=== PATIENT | male | born 1935 | race Caucasian/White ===

== ENCOUNTER 2021-04-06 10:30 | Observation (INO) | payer MEDICARE, OTHER ==
[2021-04-06 12:52] LABS: SARS-CoV-2 NAA Rapid Test DETECTED (NotDetected)
[2021-04-06 13:00] LABS: #Eosinphils 0.2 10x3/uL (0.0-0.5); #Monocytes 0.6 10x3/uL (0.0-1.1); #Neutrophils 4.9 10x3/uL (1.5-8.4); %Basophils 0.3 % (0.0-2.0); %Eosinophils 2.1 % (0.0-6.0); %Lymphocytes 20.3 % (18.0-47.0); %Monocytes 8.9 % (0.0-10.0); %Neutrophils 67.7 % (40.0-75.0); Hemoglobin 10.3 g/dL (13.5-17.5); Mean Corpuscular HGB CONC 32.5 g/dL (32.0-36.0); Mean Corpuscular Hemoglobin 29.5 pg (27.0-33.0); Mean Corpuscular Volume 90.8 fl (81.2-95.1); Mean Platelet Volume 10.2 fl (7.4-10.4); Platelet Count 283 10x3/uL (150-450); RBC Distribution Width 12.6 % (11.5-14.5); Red Blood Cell (RBC) Count 3.49 10x6/uL (4.32-5.72); White Blood Cell (WBC) Count 7.2 10x3/uL (3.5-10.5)
[2021-04-06 13:03] LABS: CKMB 4.5 ng/mL (0-6.6)
[2021-04-06 13:42] LABS: Bilirubin Neg (Negative); Blood, Urine 50 (Negative); Clarity Clear (Clear); Glucose, Urine (Dipstick) 100 mg/dL (Negative); Ketone, Urine Negative (Negative); Leukocyte Negative (Negative); Nitrite Negative (Negative); Protein, Urine (Dipstick) 500 mg/dl (Neg-Trace); Urobilinogen Normal mg/dL (Less than 2)
[2021-04-06 13:52] LABS: ALT (SGPT) 14 U/L (8-55); AST (SGOT) 17 U/L (5-34); Alkaline Phosphatase 73 U/L (40-110); Anion Gap 13 mmol/L (10-20); BUN (Urea Nitrogen) 35 mg/dL (8.4-25.7); Bilirubin, Total 1.1 mg/dL (0.2-1.2); CK (CPK) 114 U/L (30-200); CRP (Inflammatory) 2.97 mg/dL (= or < 0.5); Calc. Creatinine Clearance 0 mL/min (70-130); Carbon Dioxide 21 mmol/L (23-31); Chloride 104 mmol/L (98-107); Globulin 2.9 g/dL (2.4-3.5); Glucose 289 mg/dL (83-110); Lipase 45 U/L (8-78); Magnesium 1.9 mg/dL (1.6-2.6); Potassium 3.6 mmol/L (3.5-5.1); Protein, Total 5.9 g/dL (5.8-8.1); Sodium 134 mmol/L (136-145)
[2021-04-06 13:53] LABS: Acetaminophen Less than 6.0 mcg/mL (10.0-30.0); Alcohol Less than 10 mg/dL (Less than 10); Salicylate Less than 8.0 mg/dL (15.0-30.0)
[2021-04-06 14:08] LABS: Renal Epithelial 0-3 HPF (None Seen); Squamous Epithelial 0-3 HPF (0-3); WBC/HPF 0-3 HPF (0-3)
[2021-04-06 14:09] LABS: Bacteria/HPF Rare-Few HPF (None Seen)
[2021-04-06] MEDS ORDERED: Aspirin Chewable 81 MG TAB ONE (14:10)
[2021-04-06] MEDS ORDERED: Ondansetron ODT 4 MG TAB PO PRN (14:18)
[2021-04-06] MEDS ORDERED: Acetaminophen 325 MG TAB PO PRN (14:18)
[2021-04-06 14:46] LABS: Magnesium 1.9 mg/dL (1.6-2.6)
[2021-04-06] MEDS ORDERED: Dextrose 50% Abboject 50 ML SYRINGE SLOW IVP PRN (14:46)
[2021-04-06] MEDS ORDERED: Dextrose 5% in Water 1,000 ML IV PRN (14:46)
[2021-04-06] MEDS ORDERED: Benzonatate 100 MG CAP PO PRN (15:08)
[2021-04-06 16:11] LABS: Acetaminophen Less than 6.0 mcg/mL (10.0-30.0); Alcohol Less than 10 mg/dL (Less than 10); Salicylate Less than 8.0 mg/dL (15.0-30.0)
[2021-04-06 16:17] LABS: Troponin I 0.044 ng/mL (< 0.028)
[2021-04-06 16:54] VITALS: BMI 20.7
[2021-04-06] MEDS: HumaLOG 300 UNITS/3 ML VIAL SC PRN (18:01)
[2021-04-06] MEDS: Ventolin HFA Inhaler 60 PUFF INHALER INH SCH (19:30)
[2021-04-06] MEDS: AMOXicillin 250 MG CAP PO SCH (20:54)
[2021-04-06 22:21] LABS: Troponin I 0.046 ng/mL (< 0.028)
[2021-04-07] MEDS: Ventolin HFA Inhaler 60 PUFF INHALER INH SCH ×3 (01:10→14:47)
[2021-04-07] MEDS ORDERED: Lorazepam 2 MG/ML VIAL SLOW IVP SCH (02:30)
[2021-04-07 07:24] LABS: #Eosinphils 0.1 10x3/uL (0.0-0.5); #Monocytes 0.6 10x3/uL (0.0-1.1); #Neutrophils 3.3 10x3/uL (1.5-8.4); %Basophils 0.6 % (0.0-2.0); %Eosinophils 2.6 % (0.0-6.0); %Lymphocytes 23.1 % (18.0-47.0); %Monocytes 11.7 % (0.0-10.0); %Neutrophils 61.3 % (40.0-75.0); Hemoglobin 9.1 g/dL (13.5-17.5); Mean Corpuscular HGB CONC 32.5 g/dL (32.0-36.0); Mean Corpuscular Hemoglobin 29.4 pg (27.0-33.0); Mean Corpuscular Volume 90.3 fl (81.2-95.1); Mean Platelet Volume 10.3 fl (7.4-10.4); Platelet Count 273 10x3/uL (150-450); RBC Distribution Width 12.6 % (11.5-14.5); White Blood Cell (WBC) Count 5.4 10x3/uL (3.5-10.5)
[2021-04-07 07:37] LABS: Anion Gap 14 mmol/L (10-20); BUN (Urea Nitrogen) 34 mg/dL (8.4-25.7); Calc. Creatinine Clearance 29 mL/min (70-130); Calcium 7.8 mg/dL (7.8-10.44); Carbon Dioxide 19 mmol/L (23-31); Chloride 108 mmol/L (98-107); Glucose 162 mg/dL (83-110); Potassium 3.4 mmol/L (3.5-5.1); Sodium 138 mmol/L (136-145)
[2021-04-07] MEDS: Cholecalciferol 1,000 UNITS (25 MCG) TAB PO SCH ×2 (08:15→09:53)
[2021-04-07] MEDS: Zinc Sulfate 220 MG CAP PO SCH ×2 (08:15→09:53)
[2021-04-07] MEDS: AMOXicillin 250 MG CAP PO SCH ×2 (08:15→09:52)
[2021-04-07] MEDS: Ascorbic Acid 500 mg Chewable Tablet PO SCH ×2 (08:16→09:53)
[2021-04-07] MEDS: Aspirin 81 mg Enteric Coated Tablet PO SCH ×2 (08:16→09:53)
[2021-04-07] MEDS ORDERED: Electrolyte Replacement Protocol 1 EACH FS SCH (17:15)
[2021-04-07] MEDS: HumaLOG 300 UNITS/3 ML VIAL SC PRN ×2 (18:00→22:17)
[2021-04-07] MEDS ORDERED: Potassium Bicarbonate/Cit Ac 20 MEQ TAB PO SCH (18:00)
[2021-04-07] MEDS ORDERED: Magnesium 2 GM/50 ML 2 GM in Premix Bag 1 BAG IVPB SCH (18:00)
[2021-04-07] MEDS ORDERED: Atorvastatin Calcium 40 MG TAB PO SCH (21:00)
[2021-04-07] MEDS ORDERED: Donepezil HCl 5 MG TAB PO SCH (21:00)
[2021-04-07] MEDS ORDERED: Tamsulosin HCl 0.4 MG CAP PO SCH (21:00)
[2021-04-07] MEDS: Sacubitril 49 MG/Valsartan 51 MG TABLET PO SCH (21:29)
[2021-04-07] MEDS: Carvedilol 12.5 MG TAB PO SCH (22:16)
[2021-04-07 22:48] LABS: Potassium 3.8 mmol/L (3.5-5.1)
[2021-04-08] MEDS: HumaLOG 300 UNITS/3 ML VIAL SC PRN ×3 (05:54→12:53)
[2021-04-08] MEDS ORDERED: Levothyroxine Sodium 50 MCG TAB PO SCH (06:00)
[2021-04-08 07:02] LABS: Magnesium 2.3 mg/dL (1.6-2.6)
[2021-04-08 08:08] LABS: Phosphorus 1.7 mg/dL (2.3-4.7)
[2021-04-08] MEDS ORDERED: Ezetimibe 10 MG TAB PO SCH (09:00)
[2021-04-08] MEDS ORDERED: Venlafaxine HCl XR 75 MG CAP PO SCH (09:00)
[2021-04-08] MEDS ORDERED: Cyanocobalamin (Vitamin B-12) 1,000 MCG TAB PO SCH (09:00)
[2021-04-08] MEDS: Sacubitril 49 MG/Valsartan 51 MG TABLET PO SCH (09:44)
[2021-04-08] MEDS: Cholecalciferol 1,000 UNITS (25 MCG) TAB PO SCH (09:44)
[2021-04-08] MEDS: Zinc Sulfate 220 MG CAP PO SCH (09:44)
[2021-04-08] MEDS: Aspirin 81 mg Enteric Coated Tablet PO SCH (09:44)
[2021-04-08] MEDS: Carvedilol 12.5 MG TAB PO SCH ×2 (09:44→17:32)
[2021-04-08] MEDS: Ascorbic Acid 500 mg Chewable Tablet PO SCH (09:45)
[2021-04-08] MEDS: PHOS-NAK 1 PKT PACK PO SCH ×2 (09:46→12:52)
[2021-04-08 10:48] LABS: #Eosinphils 0.1 10x3/uL (0.0-0.5); #Monocytes 0.6 10x3/uL (0.0-1.1); #Neutrophils 3.6 10x3/uL (1.5-8.4); %Basophils 0.5 % (0.0-2.0); %Eosinophils 2.2 % (0.0-6.0); %Lymphocytes 22.3 % (18.0-47.0); %Monocytes 10.1 % (0.0-10.0); %Neutrophils 64.5 % (40.0-75.0); Hemoglobin 9.8 g/dL (13.5-17.5); Mean Corpuscular HGB CONC 32.6 g/dL (32.0-36.0); Mean Corpuscular Hemoglobin 29.2 pg (27.0-33.0); Mean Corpuscular Volume 89.6 fl (81.2-95.1); Mean Platelet Volume 10.1 fl (7.4-10.4); Platelet Count 313 10x3/uL (150-450); Red Blood Cell (RBC) Count 3.36 10x6/uL (4.32-5.72); White Blood Cell (WBC) Count 5.6 10x3/uL (3.5-10.5)
[2021-04-08 11:11] LABS: ALT (SGPT) 12 U/L (8-55); AST (SGOT) 15 U/L (5-34); Albumin 2.7 g/dL (3.4-4.8); Alkaline Phosphatase 73 U/L (40-110); Anion Gap 13 mmol/L (10-20); BUN (Urea Nitrogen) 34 mg/dL (8.4-25.7); Bilirubin, Total 1.3 mg/dL (0.2-1.2); Calc. Creatinine Clearance 28 mL/min (70-130); Carbon Dioxide 23 mmol/L (23-31); Chloride 107 mmol/L (98-107); Globulin 2.7 g/dL (2.4-3.5); Glucose 229 mg/dL (83-110); Potassium 3.6 mmol/L (3.5-5.1); Protein, Total 5.4 g/dL (5.8-8.1); Sodium 139 mmol/L (136-145)
[2021-04-08] MEDS: Ventolin HFA Inhaler 60 PUFF INHALER INH SCH (12:45)
[2021-04-08 17:55] VITALS: BP 148/80; TEMP 98
[2021-04-09] MEDS ORDERED: FLU VACC QS2021-22(65YR UP)/PF 240 MCG/0.7 ML SYRINGE IM ONE (17:15)
== END 2021-04-08 18:47 ==
LOC: CSHERS 10:30 → CSHTELE 14:37
PROVIDERS: ADMIT Hospitalist; ATTEND Family Medicine
DX: G93.41 Metabolic encephalopathy (principal); S09.90XA Unspecified injury of head, initial encounter; U07.1 COVID-19; J12.82 Pneumonia due to coronavirus disease 2019; Z91.81 History of falling; N39.0 Urinary tract infection, site not specified; R77.8 Other specified abnormalities of plasma proteins; I25.10 Atherosclerotic heart disease of native coronary artery without angina pectoris; I11.0 Hypertensive heart disease with heart failure; I50.9 Heart failure, unspecified; Z95.810 Presence of automatic (implantable) cardiac defibrillator; E03.9 Hypothyroidism, unspecified; Z79.01 Long term (current) use of anticoagulants; Z79.899 Other long term (current) drug therapy; E11.9 Type 2 diabetes mellitus without complications; G30.9 Alzheimer's disease, unspecified; F02.80 Dementia in other diseases classified elsewhere, unspecified severity, without behavioral disturbance, psychotic disturbance, mood disturbance, and anxiety; F32.9 Major depressive disorder, single episode, unspecified; Z79.4 Long term (current) use of insulin; W19.XXXA Unspecified fall, initial encounter; Z95.5 Presence of coronary angioplasty implant and graft; Z95.1 Presence of aortocoronary bypass graft; Z90.49 Acquired absence of other specified parts of digestive tract
CPT/HCPCS: 70450; 71045; 72125; 80048; 80053; 80307; 82550; 82553; 82962 ×3; 83605; 83690; 83735 ×2; 83880; 84100; 84132; 84484 ×2; 85025 ×2; 86140; 87086; 93005; 94640 ×3; 94664; 94760 ×2; 97139 ×4; M0243; Q0244; U0002; 36415; 36416; 51701; 81003; 81015; 84443; 96374; 96375; G0378; J1815; J2060; J3475; J3490

== ENCOUNTER 2021-04-09 08:39 | Emergency (ER) | payer MEDICARE, OTHER | END 2021-04-09 12:45 | disposition home or self-care (01) | LOC: CSHERS 08:39 | DX: S05.11XA Contusion of eyeball and orbital tissues, right eye, initial encounter (principal); I11.0 Hypertensive heart disease with heart failure; I50.9 Heart failure, unspecified; E03.9 Hypothyroidism, unspecified; E78.00 Pure hypercholesterolemia, unspecified; G30.9 Alzheimer's disease, unspecified; F02.80 Dementia in other diseases classified elsewhere, unspecified severity, without behavioral disturbance, psychotic disturbance, mood disturbance, and anxiety; Z79.01 Long term (current) use of anticoagulants; Z79.899 Other long term (current) drug therapy; Z79.4 Long term (current) use of insulin; W06.XXXA Fall from bed, initial encounter | CPT/HCPCS: 12011; 70450; 70486; 93005 ==

== ENCOUNTER 2021-04-19 11:08 | Emergency (ER) | payer OTHER, MEDICARE | END 2021-04-19 14:10 | disposition home or self-care (01) | LOC: CSHERS 11:08 | DX: S00.03XA Contusion of scalp, initial encounter (principal); W01.10XA Fall on same level from slipping, tripping and stumbling with subsequent striking against unspecified object, initial encounter; I11.0 Hypertensive heart disease with heart failure; I50.9 Heart failure, unspecified; E78.5 Hyperlipidemia, unspecified; Z79.899 Other long term (current) drug therapy | CPT/HCPCS: 70450 ==

== ENCOUNTER 2021-05-16 02:40 | Inpatient (IN) | payer OTHER, MEDICARE ==
[2021-05-16] MEDS ORDERED: Dextrose 50% Abboject 50 ML SYRINGE ONE ×2 (03:17→15:47)
[2021-05-16 03:31] LABS: ALV-art Gradient 339.395 mmHg (0-20); Actual Bicarbonate (HCO3a) 16.3 mEq/L (22-28); Base Excess (BEa) -11.2 mEq/L (-2.0 to +3.0); CO2 Tension 42.9 mmHg (35.0-45.0); Calcium, Ionized (arterial) 1.24 mmol/L (1.12-1.30); Carboxyhemoglobin (COHb) 0.3 gm% (0.0-3.0); O2 Tension (PaO2), arterial 63.3 mmHg (> 60.0); Potassium - ABG Lab 3.6 mmol/L (3.70-5.30); Puncture Site RBA
[2021-05-16] MEDS ORDERED: Sodium Bicarb 50 MEQ/50 ML Abboject 8.4% SYRINGE ONE (03:37)
[2021-05-16 03:57] LABS: #Monocytes 0.3 10x3/uL (0.0-1.1); #Neutrophils 6.1 10x3/uL (1.5-8.4); %Basophils 0.3 % (0.0-2.0); %Eosinophils 0.1 % (0.0-6.0); %Lymphocytes 12.9 % (18.0-47.0); %Monocytes 3.4 % (0.0-10.0); Hemoglobin 11.2 g/dL (13.5-17.5); Mean Corpuscular HGB CONC 31.5 g/dL (32.0-36.0); Mean Corpuscular Hemoglobin 29.2 pg (27.0-33.0); Mean Corpuscular Volume 92.7 fl (81.2-95.1); Mean Platelet Volume 11.2 fl (7.4-10.4); Platelet Count 149 10x3/uL (150-450); RBC Distribution Width 14.9 % (11.5-14.5); Red Blood Cell (RBC) Count 3.84 10x6/uL (4.32-5.72); White Blood Cell (WBC) Count 7.3 10x3/uL (3.5-10.5)
[2021-05-16 04:09] LABS: Bilirubin Neg (Negative); Blood, Urine 150 (Negative); Clarity Cloudy (Clear); Glucose, Urine (Dipstick) 50 mg/dL (Negative); Ketone, Urine Negative (Negative); Leukocyte 500 (Negative); Nitrite Negative (Negative); Protein, Urine (Dipstick) 500 mg/dl (Neg-Trace); Urobilinogen Normal mg/dL (Less than 2)
[2021-05-16] MEDS ORDERED: Cefepime 2 GM VIAL ONE (04:09)
[2021-05-16 04:12] LABS: SARS-CoV-2 NAA Rapid Test DETECTED (NotDetected)
[2021-05-16 04:13] LABS: ALT (SGPT) 17 U/L (8-55); AST (SGOT) 32 U/L (5-34); Albumin 2.7 g/dL (3.4-4.8); Alkaline Phosphatase 102 U/L (40-110); Anion Gap 15 mmol/L (10-20); BUN (Urea Nitrogen) 51 mg/dL (8.4-25.7); Bilirubin, Total 1.2 mg/dL (0.2-1.2); Calc. Creatinine Clearance 0 mL/min (70-130); Calcium 7.9 mg/dL (7.8-10.44); Carbon Dioxide 23 mmol/L (23-31); Chloride 108 mmol/L (98-107); Globulin 2.9 g/dL (2.4-3.5); Glucose 301 mg/dL (83-110); Potassium 3.1 mmol/L (3.5-5.1); Protein, Total 5.6 g/dL (5.8-8.1); Sodium 143 mmol/L (136-145)
[2021-05-16 04:50] LABS: CKMB 9.3 ng/mL (0-6.6)
[2021-05-16 04:53] LABS: Bacteria/HPF None Seen HPF (None Seen); Squamous Epithelial None Seen HPF (0-3); WBC/HPF Greater than 50 HPF (0-3)
[2021-05-16] MEDS ORDERED: Potassium Chloride 20 MEQ/100 ML PREMIX BAG ONE (05:26)
[2021-05-16 07:14] LABS: Lactic Acid 3.4 mmol/L (0.5-2.2)
[2021-05-16 07:24] VITALS: BMI 18.1
[2021-05-16 07:34] LABS: Troponin I 0.144 ng/mL (< 0.028)
[2021-05-16 07:39] LABS: Magnesium 1.8 mg/dL (1.6-2.6)
[2021-05-16] MEDS: Dextrose 10% in Water 1,000 ML IV SCH (08:46)
[2021-05-16] MEDS: Lactated Ringer's 1,000 ML IV SCH ×2 (08:54→17:09)
[2021-05-16] MEDS: Enoxaparin Sodium 60 MG/0.6 ML SYRINGE SC SCH (08:55)
[2021-05-16] MEDS ORDERED: FLU VACC QS2021-22(65YR UP)/PF 240 MCG/0.7 ML SYRINGE IM ONE (09:00)
[2021-05-16] MEDS: Potassium Chloride 20 MEQ in Premix Bag 1 BAG IVPB SCH ×3 (09:16→20:25)
[2021-05-16] MEDS ORDERED: Vancomycin 1 GM in Premix Bag 1 BAG IVPB PRN (09:31)
[2021-05-16 09:44] LABS: Troponin I 0.153 ng/mL (< 0.028)
[2021-05-16] MEDS ORDERED: Famotidine 20 MG TAB PO SCH (10:00)
[2021-05-16 11:03] LABS: Lactic Acid 3.2 mmol/L (0.5-2.2)
[2021-05-16 12:47] LABS: ALT (SGPT) 16 U/L (8-55); AST (SGOT) 29 U/L (5-34); Albumin 2.6 g/dL (3.4-4.8); Alkaline Phosphatase 93 U/L (40-110); Anion Gap 13 mmol/L (10-20); BUN (Urea Nitrogen) 50 mg/dL (8.4-25.7); Bilirubin, Total 1.2 mg/dL (0.2-1.2); Calc. Creatinine Clearance 18 mL/min (70-130); Calcium 7.8 mg/dL (7.8-10.44); Carbon Dioxide 28 mmol/L (23-31); Chloride 112 mmol/L (98-107); Globulin 2.7 g/dL (2.4-3.5); Glucose 125 mg/dL (83-110); Protein, Total 5.3 g/dL (5.8-8.1); Sodium 150 mmol/L (136-145)
[2021-05-16] MEDS: Dextrose 5 %-0.45 % NaCl 1,000 ML IV SCH (17:06)
[2021-05-16 18:01] LABS: Anion Gap 11 mmol/L (10-20); BUN (Urea Nitrogen) 46 mg/dL (8.4-25.7); Calc. Creatinine Clearance 19 mL/min (70-130); Calcium 7.9 mg/dL (7.8-10.44); Carbon Dioxide 30 mmol/L (23-31); Chloride 109 mmol/L (98-107); Glucose 138 mg/dL (83-110); Sodium 147 mmol/L (136-145)
[2021-05-16] MEDS: Famotidine/PF 20 mg/2ml Vial SLOW IVP SCH (22:21)
[2021-05-17] MEDS: Cefepime 2 GM in Sodium Chloride 0.9% 100 ML IVPB SCH (04:27)
[2021-05-17] MEDS ORDERED: VANCOMYCIN IVPB SCH (05:00)
[2021-05-17] MEDS: Dextrose 5 %-0.45 % NaCl 1,000 ML IV SCH ×2 (05:33→14:51)
[2021-05-17] MEDS: Dextrose 10% in Water 1,000 ML IV SCH (05:33)
[2021-05-17] MEDS ORDERED: Levothyroxine Sodium 200 MCG VIAL IVP SCH (06:00)
[2021-05-17 06:28] LABS: Vancomycin, Random 8.5 ug/mL (See Comment)
[2021-05-17 06:32] LABS: Anion Gap 11 mmol/L (10-20); BUN (Urea Nitrogen) 39 mg/dL (8.4-25.7); Calc. Creatinine Clearance 21 mL/min (70-130); Calcium 7.8 mg/dL (7.8-10.44); Carbon Dioxide 28 mmol/L (23-31); Chloride 110 mmol/L (98-107); Glucose 100 mg/dL (83-110); Magnesium 1.7 mg/dL (1.6-2.6); Sodium 146 mmol/L (136-145)
[2021-05-17 07:03] LABS: #Monocytes 0.7 10x3/uL (0.0-1.1); #Neutrophils 6.8 10x3/uL (1.5-8.4); %Basophils 0.2 % (0.0-2.0); %Eosinophils 0.4 % (0.0-6.0); %Lymphocytes 17.3 % (18.0-47.0); %Neutrophils 73.9 % (40.0-75.0); Hemoglobin 10.2 g/dL (13.5-17.5); Mean Corpuscular HGB CONC 31.9 g/dL (32.0-36.0); Mean Corpuscular Hemoglobin 29.7 pg (27.0-33.0); Mean Platelet Volume 11.2 fl (7.4-10.4); Platelet Count 142 10x3/uL (150-450); RBC Distribution Width 15.2 % (11.5-14.5); Red Blood Cell (RBC) Count 3.44 10x6/uL (4.32-5.72); White Blood Cell (WBC) Count 9.2 10x3/uL (3.5-10.5)
[2021-05-17] MEDS ORDERED: Famotidine 20 MG TAB PO SCH (09:00)
[2021-05-17] MEDS ORDERED: Vancomycin HCl 750 MG in Sodium Chloride 0.9% 250 ML 250 ML IVPB SCH (09:00)
[2021-05-17] MEDS: Enoxaparin Sodium 60 MG/0.6 ML SYRINGE SC SCH (09:51)
[2021-05-17] MEDS: Famotidine/PF 20 mg/2ml Vial SLOW IVP SCH ×2 (09:51→21:23)
[2021-05-17] MEDS ORDERED: Electrolyte Replacement Protocol 1 EACH FS SCH (20:30)
[2021-05-17] MEDS ORDERED: Carvedilol 12.5 MG TAB PO SCH (21:00)
[2021-05-17] MEDS ORDERED: Potassium Chloride 20 MEQ in Premix Bag 1 BAG IVPB SCH (21:00)
[2021-05-17] MEDS ORDERED: Potassium Bicarbonate/Cit Ac 20 MEQ TAB PO SCH (21:00)
[2021-05-17] MEDS: Donepezil HCl 5 MG TAB PO SCH (21:19)
[2021-05-18] MEDS: Cefepime 2 GM in Sodium Chloride 0.9% 100 ML IVPB SCH (05:14)
[2021-05-18 06:01] LABS: ALT (SGPT) 16 U/L (8-55); AST (SGOT) 32 U/L (5-34); Albumin 2.7 g/dL (3.4-4.8); Alkaline Phosphatase 102 U/L (40-110); Anion Gap 13 mmol/L (10-20); BUN (Urea Nitrogen) 28 mg/dL (8.4-25.7); Bilirubin, Total 1.3 mg/dL (0.2-1.2); Calc. Creatinine Clearance 24 mL/min (70-130); Calcium 7.9 mg/dL (7.8-10.44); Carbon Dioxide 25 mmol/L (23-31); Chloride 108 mmol/L (98-107); Globulin 2.6 g/dL (2.4-3.5); Glucose 141 mg/dL (83-110); Magnesium 1.6 mg/dL (1.6-2.6); Potassium 3.4 mmol/L (3.5-5.1); Protein, Total 5.3 g/dL (5.8-8.1); Sodium 143 mmol/L (136-145)
[2021-05-18] MEDS ORDERED: Magnesium 2 GM/50 ML 2 GM in Premix Bag 1 BAG IVPB SCH (06:15)
[2021-05-18] MEDS: Potassium Chloride 20 MEQ TAB PO SCH ×2 (06:40→12:02)
[2021-05-18] MEDS ORDERED: Tamsulosin HCl 0.4 MG CAP PO SCH ×2 (09:00→15:30)
[2021-05-18] MEDS: Ferrous Sulfate 325 MG TAB PO SCH (09:43)
[2021-05-18] MEDS: Venlafaxine HCl XR 75 MG CAP PO SCH (09:43)
[2021-05-18] MEDS: Potassium Bicarbonate/Cit Ac 20 MEQ TAB PO SCH ×2 (09:43→17:17)
[2021-05-18] MEDS: Carvedilol 12.5 MG TAB PO SCH ×3 (09:43→17:18)
[2021-05-18] MEDS: Famotidine/PF 20 mg/2ml Vial SLOW IVP SCH (09:44)
[2021-05-18 12:14] LABS: Potassium 3.8 mmol/L (3.5-5.1)
[2021-05-18] MEDS ORDERED: Dextrose 50% Abboject 50 ML SYRINGE SLOW IVP PRN (17:43)
[2021-05-18] MEDS ORDERED: HumaLOG 300 UNITS/3 ML VIAL SC PRN (17:43)
[2021-05-18] MEDS ORDERED: Dextrose 5% in Water 1,000 ML IV PRN (17:43)
[2021-05-18] MEDS ORDERED: cefTRIAXone\\ROCEPHIN 1 GM in Sodium Chloride 0.9% 100 ML IVPB SCH (18:00)
[2021-05-18] MEDS: Donepezil HCl 5 MG TAB PO SCH (22:19)
[2021-05-19 05:21] LABS: Magnesium 1.8 mg/dL (1.6-2.6)
[2021-05-19] MEDS ORDERED: Magnesium 2 GM/50 ML 2 GM in Premix Bag 1 BAG IVPB SCH (06:00)
[2021-05-19] MEDS ORDERED: Famotidine/PF 20 mg/2ml Vial SLOW IVP SCH (09:00)
[2021-05-19] MEDS ORDERED: Tamsulosin HCl 0.4 MG CAP PO SCH (09:00)
[2021-05-19] MEDS: Carvedilol 12.5 MG TAB PO SCH ×2 (09:27→13:26)
[2021-05-19] MEDS: Venlafaxine HCl XR 75 MG CAP PO SCH (09:27)
[2021-05-19] MEDS: Ferrous Sulfate 325 MG TAB PO SCH (09:27)
[2021-05-19] MEDS: Potassium Bicarbonate/Cit Ac 20 MEQ TAB PO SCH (09:28)
[2021-05-19 13:15] VITALS: TEMP 97.6
[2021-05-19 15:47] VITALS: BP 140/72
== END 2021-05-19 15:47 | disposition home or self-care (01) | DRG 871 ==
LOC: CSHERS 02:40 → CSHIMCU 06:47 → CSHTELE 11:23
PROVIDERS: ADMIT Family Medicine; ATTEND Family Medicine
DX: A41.59 Other Gram-negative sepsis (principal); J96.01 Acute respiratory failure with hypoxia; J69.0 Pneumonitis due to inhalation of food and vomit; U07.1 COVID-19; R65.21 Severe sepsis with septic shock; I21.A1 Myocardial infarction type 2; J18.9 Pneumonia, unspecified organism; N39.0 Urinary tract infection, site not specified; E46 Unspecified protein-calorie malnutrition; E87.0 Hyperosmolality and hypernatremia; N17.9 Acute kidney failure, unspecified; Z68.1 Body mass index [BMI] 19.9 or less, adult; Z66 Do not resuscitate; I25.5 Ischemic cardiomyopathy; I48.91 Unspecified atrial fibrillation; G30.9 Alzheimer's disease, unspecified; F02.80 Dementia in other diseases classified elsewhere, unspecified severity, without behavioral disturbance, psychotic disturbance, mood disturbance, and anxiety; E03.9 Hypothyroidism, unspecified; I25.10 Atherosclerotic heart disease of native coronary artery without angina pectoris; R68.0 Hypothermia, not associated with low environmental temperature; E11.649 Type 2 diabetes mellitus with hypoglycemia without coma; E87.6 Hypokalemia; E11.22 Type 2 diabetes mellitus with diabetic chronic kidney disease; I12.9 Hypertensive chronic kidney disease with stage 1 through stage 4 chronic kidney disease, or unspecified chronic kidney disease; E86.9 Volume depletion, unspecified; E86.0 Dehydration; N18.9 Chronic kidney disease, unspecified; R33.9 Retention of urine, unspecified; Z95.810 Presence of automatic (implantable) cardiac defibrillator; Z95.5 Presence of coronary angioplasty implant and graft; Z95.1 Presence of aortocoronary bypass graft; Z90.49 Acquired absence of other specified parts of digestive tract; Z88.2 Allergy status to sulfonamides
CPT/HCPCS: 36415; 36416; 36600; 51702; 70450; 71045; 80048; 80053; 80202; 81003; 81015; 82553; 82805; 83605; 83735; 83880; 84145; 84443; 84484; 85025; 87040; 87077; 87086; 87186; 93005; 93010; 94760; 96365; 96366; 96368; 96375; 99292; J0692; J0696; J1650; J3370; J3475; J3480; J3490; J7042; J7050; J7120; S0028; U0002